=== PATIENT | male | born 1955 | race African-American/Black ===

== ENCOUNTER → 2016-12-24 | Day surgery (SDC) | payer OTHER ==
[~2016-12-24] MED LIST: BLOOD PRESSURE MED; FLEXERIL PO; FLEXERIL10 MG PO; GABAPENTIN300 MG PO; GLUCOTROL10 MG PO; HYDROCHLOROTHIA25 MG PO; LISINOPRIL PO; LISINOPRIL10 MG PO; MEDROL DOSEPAK4 MG PO; METFORMIN PO; NAPROSYN500 MG PO; PRINIVIL40 MG PO; VICODIN 5/500 T1 TAB PO; VOLTAREN75 MG PO
--- NOTE | ~2016-12-24 | OR ---
Unit #: [id number] #: [id number] Patient: NEVILLE WELCH [id number] [address] [id number] [id number] O MR#: [id number] NAME: NEVILLE WELCH ROOM: Date of Procedure: 12/24/2016 Admission Date: 12/24/2016 Surgeon: Roni Escobar M.D. : 1955 Attending Physician: Roni Escobar M.D. Primary Care Physician: Carlo Finn M.D. OPERATIVE REPORT PROCEDURE PERFORMED Colonoscopy to cecum. INDICATIONS FOR PROCEDURE The patient's brother had colon cancer, undergoing colonoscopy for high risk. MEDICATIONS Monitored anesthesia. POSTOPERATIVE FINDINGS 1. Normal colon exam to cecum. 2. Internal hemorrhoids. 3. Good prep. 4. Repeat colonoscopy in 5 years. DESCRIPTION OF PROCEDURE The patient was explained of the procedure, risks, and benefits along with the risks and benefits of anesthesia. He was brought to the endoscopy room. Propofol anesthesia was given. Rectal exam was done, which was normal. Colonoscope was lubricated, passed up the rectum, advanced under direct vision all the way to the cecum. Cecum was identified by ileocecal valve and appendiceal orifice. I retroflexed in the rectum to look at perianal area, which was unremarkable except for hemorrhoids. Scope was gently pulled out. He tolerated it well. No major complications were seen. Dictated by... Eric Cervantes/randee TD: 12/24/2016 17:03 JOB #: [id number] CC: Selam Cabral M.D. Unit #: [id number] #: [id number] Patient: NEVILLE WELCH OPERATIVE REPORT Page 1 of 1 X Roni Escobar MD X PROCEDURE OPERATIVE NOTE
== END | disposition home or self-care (01) ==
LOC: COPS 12:23
DX: Z12.11 Encounter for screening for malignant neoplasm of colon (principal); K64.8 Other hemorrhoids; F17.210 Nicotine dependence, cigarettes, uncomplicated; E11.9 Type 2 diabetes mellitus without complications; I10 Essential (primary) hypertension; Z80.0 Family history of malignant neoplasm of digestive organs; Z79.84 Long term (current) use of oral hypoglycemic drugs; Z79.899 Other long term (current) drug therapy; Z79.1 Long term (current) use of non-steroidal anti-inflammatories (NSAID)
CPT/HCPCS: 82947